=== PATIENT | female | born 1950 | race Caucasian/White ===

== ENCOUNTER 2016-12-31 13:08 | Emergency (ER) | payer OTHER ==
[2016-12-31 15:26] VITALS: BP 147/82
--- NOTE | 2016-12-31 16:47 | UC ---
Throat Pain/Nasal Sae HPI - HPI Summary HPI Summary: 12/30/16 THROAT PAIN AND EXPOSURE TO STREP. CONCERN ABOUT STREP BECAUSE SHE IS VISITING 95 Y/O FATHER THIS WEEKEND. - History of Current Complaint Chief Complaint: UCGeneralIllness Stated Complaint: SORE THROAT, COUGH Time Seen by Provider: 12/31/16 15:32 Hx Obtained From: Patient Hx Last Menstrual Period: menopause Onset/Duration: Gradual Onset, Lasting Days, Still Present Severity: Moderate Cough: None Associated Signs & Symptoms: Positive: Dysphagia, Hoarseness - Epiglottits Risk Factors Epiglottis Risk Factors: Negative - Allergies/Home Medications Allergies/Adverse Reactions: Allergies Allergy/AdvReac Type Severity Reaction Status Date / Time No Known Allergies Allergy Verified 12/31/16 15:14 Home Medications: Home Medications Pseudoephedrine-Guaifenesin [Mucinex D 60-600 mg] 1 tab PO PRN 12/31/16 [History ] Thyroid [[place] Thyroid] 120 mg PO DAILY 12/31/16 [History Confirmed 12/31/16] PMH/Surg Hx/FS Hx/Imm Hx Previously Healthy: Yes Endocrine History Of: Reports: Thyroid Disease Denies: Diabetes Cardiovascular History Of: Denies: Cardiac Disorders, Hypertension, Pacemaker/ICD Respiratory History Of: Denies: COPD, Asthma GI/ History Of: Denies: Ulcer - Surgical History Surgical History: Yes Surgery Procedure, Year, and Place: hysterectomy. csection x2 - Family History Known Family History: Positive: None - Social History Occupation: Employed Full-time Lives: With Family Alcohol Use: Occasionally Substance Use Type: None Smoking Status (MU): Never Smoked Tobacco Have You Smoked in the Last Year: No - Immunization History Most Recent Influenza Vaccination: not utd Most Recent Tetanus Shot: more than 10 years Review of Systems Constitutional: Negative Skin: Negative Eyes: Negative ENT: Negative Respiratory: Negative Cardiovascular: Negative Gastrointestinal: Negative Genitourinary: Negative Motor: Negative Neurovascular: Negative Musculoskeletal: Negative Neurological: Negative Psychological: Negative All Other Systems Reviewed And Are Negative: Yes Physical Exam Triage Information Reviewed: Yes Appearance: Well-Appearing, No Pain Distress, Well-Nourished Vital Signs: Initial Vital Signs Temp 99.1 F 12/31/16 15:21 Pulse 103 12/31/16 15:21 Resp 18 12/31/16 15:21 BP 147/82 12/31/16 15:21 Pulse Ox 97 12/31/16 15:21 Vital Signs Reviewed: Yes Eye Exam: Normal ENT: Positive: Normal ENT inspection, Hearing grossly normal, Pharyngeal erythema, TMs normal Dental Exam: Normal Neck exam: Normal Neck: Positive: Supple, Nontender Respiratory Exam: Normal Respiratory: Positive: Chest non-tender, Lungs clear, Normal breath sounds, No respiratory distress Cardiovascular Exam: Normal Cardiovascular: Positive: RRR, No Murmur, Pulses Normal Abdominal Exam: Normal Abdomen Description: Positive: Nontender, No Organomegaly Musculoskeletal Exam: Normal Neurological Exam: Normal Psychological Exam: Normal Skin Exam: Normal Throat Pain/Nasal Course/Dx - Differential Dx/Diagnosis Differential Diagnosis/HQI/PQRI: Pharyngitis, Sinusitis, Tonsillitis Provider Diagnoses: PHARYNGITIS. UPPER RESPIRITORY INFECTION Discharge - Discharge Plan Condition: Stable Disposition: HOME Patient Education Materials: Tonsillitis (ED), Viral Syndrome (ED) Referrals: Shannon Martínez MD [Primary Care Provider] - Additional Instructions: CEPOCOL LOZENGES, CHLORASEPTIC SPRAY.
== END 2016-12-31 16:47 | disposition home or self-care (01) ==
LOC: UCEAST 13:08
DX: J02.9 Acute pharyngitis, unspecified (principal); J06.9 Acute upper respiratory infection, unspecified
CPT/HCPCS: 87651; 99212; G0463

== ENCOUNTER 2019-03-06 09:58 | Emergency (ER) | payer OTHER ==
[2019-03-06 10:12] VITALS: BP 144/77
--- NOTE | 2019-03-06 10:58 | UC ---
Throat Pain/Nasal Sae HPI - HPI Summary HPI Summary: 68 year olf female with h/o cough, non-productive, sinus pressure, rib pain with coughing which is severe. Denies jaw pain, arm pain, no h/o chest pain. + increased heart rate last night, decreased PO intake due to cold / cough s/s. No cardiac history. + fatigue. - History of Current Complaint Chief Complaint: UCRespiratory Stated Complaint: CONGESTION/COUGH Time Seen by Provider: 03/06/19 10:46 Hx Obtained From: Patient Hx Last Menstrual Period: menopause ?: No Onset/Duration: Sudden Onset, Lasting Days Severity: Severe Pain Intensity: 7 Pain Scale Used: 0-10 Numeric Cough: Nonproductive Associated Signs & Symptoms: Positive: Sinus Discomfort, Nasal Discharge - Allergies/Home Medications Allergies/Adverse Reactions: Allergies Allergy/AdvReac Type Severity Reaction Status Date / Time No Known Allergies Allergy Verified 03/06/19 10:12 PMH/Surg Hx/FS Hx/Imm Hx Previously Healthy: Yes - Surgical History Surgical History: Yes Surgery Procedure, Year, and Place: hysterectomy. csection x2,benign breast biopsy -right - Family History Known Family History: Positive: None - Social History Alcohol Use: Occasionally Substance Use Type: None Smoking Status (MU): Never Smoked Tobacco Have You Smoked in the Last Year: No - Immunization History Most Recent Influenza Vaccination: not utd Most Recent Tetanus Shot: more than 10 years Review of Systems All Other Systems Reviewed And Are Negative: Yes Constitutional: Positive: Chills, Fatigue ENT: Positive: Nasal Discharge, Sinus Congestion, Sinus Pain/Tenderness Respiratory: Positive: Shortness Of Breath, Cough Psychological: Positive: Anxious Is Patient Immunocompromised?: No Physical Exam Triage Information Reviewed: Yes Appearance: No Pain Distress, Well-Nourished, Ill-Appearing - mild Vital Signs: Initial Vital Signs Temp 98 F 03/06/19 10:08 Pulse 125 03/06/19 10:08 Resp 20 03/06/19 10:08 BP 144/77 03/06/19 10:08 Pulse Ox 95 03/06/19 10:08 Vital Signs Reviewed: Yes Eyes: Positive: Conjunctiva Clear ENT: Positive: Pharynx normal, TMs normal, TM bulging, TM dull, Sinus tenderness - mild frontal, Uvula midline. Negative: TM red, Tonsillar swelling , Tonsillar exudate Neck: Positive: Supple, Nontender, No Lymphadenopathy. Negative: Nuchal Rigidity, Enlarged Nodes @ Respiratory: Positive: Chest non-tender, Lungs clear, Normal breath sounds, No respiratory distress, No accessory muscle use. Negative: Crackles, Rhonchi, Stridor, Wheezing Cardiovascular: Positive: No Murmur, Tachycardia - mild 110 Abdomen Description: Positive: Nontender, No Organomegaly, Soft Neurological Exam: Normal Psychological Exam: Normal Throat Pain/Nasal Course/Dx - Course Course Of Treatment: sinusitis vs acute bronchitis. abx given, follow up with PCP. OTC medications fr cough. - Differential Dx/Diagnosis Differential Diagnosis/HQI/PQRI: Pharyngitis, Sinusitis Provider Diagnosis: Sinusitis Discharge - Sign-Out/Discharge Documenting (check all that apply): Patient Departure All imaging exams completed and their final reports reviewed: No Studies - Discharge Plan Condition: Fair Disposition: HOME Prescriptions: Amoxicillin PO (*) [Amoxicillin 875 MG (*)] 875 mg PO BID #14 tab Patient Education Materials: Sinusitis (ED) Forms: *Work Release Referrals: No Primary Care Phys,NOPCP [Primary Care Provider] - Additional Instructions: - Increase fluid intake, rest - GO to ER with chest pain, increased heart rate, worsening symptoms - ANtibiotics as directed - Over the counter medications for cough - Motrin/ tylenol as needed for aches, fever - Warm compresses for eye - Continue erythromycin ointment until symptoms resolved - Billing Disposition and Condition Condition: FAIR Disposition: Home
== END 2019-03-06 11:10 | disposition home or self-care (01) ==
LOC: UCEAST 09:58
DX: J32.9 Chronic sinusitis, unspecified (principal); R07.81 Pleurodynia; R05 Cough; R06.02 Shortness of breath; R53.83 Other fatigue
CPT/HCPCS: 99212; G0463

== ENCOUNTER 2019-06-14 10:00 | Emergency (ER) | payer OTHER ==
--- NOTE | 2019-06-15 22:10 | UC ---
- Progress Note Progress Note: Addendum: Social Hx: Employed [employer]. Lives with family. Course/Dx - Diagnoses Provider Diagnoses: Contact dermatitis Discharge - Sign-Out/Discharge Documenting (check all that apply): Post-Discharge Follow Up All imaging exams completed and their final reports reviewed: No Studies - Discharge Plan Condition: Stable Disposition: HOME Referrals: No Primary Care Phys,NOPCP [Primary Care Provider] - - Billing Disposition and Condition Condition: STABLE Disposition: Home - Attestation Statements Provider Attestation: I was available for consult. This patient was seen by the MADDY. The patient was not presented to, seen by, or examined by me. Lee Webb MD
== END 2019-06-14 11:20 | disposition home or self-care (01) ==
LOC: UCEAST 10:00
DX: Z53.8 Procedure and treatment not carried out for other reasons (principal)
CPT/HCPCS: 99202; G0463